=== PATIENT | female | born 2000 | race Caucasian/White ===

== ENCOUNTER 2020-10-06 05:25 | Inpatient (IN) ==
--- NOTE | 2020-10-06 05:56 | Emergency Department Note ---
Impression & Plan Depression with suicidal ideation, Alcohol intoxication ED Provider Note Name: ANABEL MENDOZA Age: 20 Sex: F Arrives Via: Ambulance Informant: Patient, [facility] ED Provider: Андрей Colon MD Chief Complaint: Suicidal Impression: Depression with Suicidal ideation Alcohol intoxication Medical Decision Makin yr old female with history of depression/anxiety, bipolar & ADD arrives with worsening suicidal ideation due to arguments with her mother and admits ETOH use this evening. Medically clear other than mildly intoxicated. She has made no act of furtherance, does not think she would actively harm self. She is a bit tangential/manic on initial evaluation though and would likely benefit from inpatient mental health treatment if she still feels this way when sober. Signed out to Dr Rangel pending psych evaluation. Prior Medical Record and Triage/Nursing Notes reviewed by Me Additional history obtained from chart Differentials:Mood disorder, infection, hypoglycemia, electrolyte abnormalities, cardiac sources, intracerebral event, toxicologic, trauma, neurologic, as well as other pathologies. Vital Signs: reviewed and remarkable for no significant abnormalities Labs:Reviewed and remarkable for etoh elevation Plan: Disposition: Signed out to Dr Rangel Condition: Good History of Present Illness:20 yr old female arrives for evaluation of suicidal ideation. Patient notes extreme stress with mother the last few days. States she started having suicidal thoughts with plan to overdose. Denies any attempt and does not think she would actually harm herself, but she became scarred and went to the [facility] to be evaluated. [facility] sent her here for further evaluation. She admits ETOH earlier tonight. Denies overdose nor attempt to harm self. Denies previous suicide attempt nor any act of furtherance. She admits history of bipolar and anxiety/depression. She had been on Zoloft until a few days ago when she stopped it as she felt it did not work. She uses Propranolol occasionally for panic attacks but she does not feel that it helps. States she is feeling a bit better now that she is at the hospital. Denies drugs use other than occasional marijuana. No chest pain pain, sob, syncope, headache, urinary symptoms, abdominal pain, back pains nor other symptoms. Talking to her mother makes symptoms worse, rest and avoidance makes symptoms be tter. ROS: See above HPI for pertinent positives & negatives. A total of 10 systems reviewed and were otherwise negative. Past Medical History:Bipolar, Anxiety, Depression, ADD Past Surgical History:None Family History:Mother: Bipolar Social History:[employer] Student, from [place], regular ETOH, occasional marijuana, rare tobacco use, no drug use. Home Medications:Adderall 30mg BID, Occasional Propranolol. Allergies:NKDA Vitals:Blood Pressure: 137/74, Pulse 104, RR 22, T 37.3C, O2 98% on RA Physical Exam: GENERAL: Patient is anxious appearing and in minimal distress. mildly intoxicated appearing EYES: No scleral icterus, unremarkable pupils. ENT: Mucous membranes moist, no nasal congestion. NECK: No masses appreciated, nomeningismus, trachea is midline. RESPIRATORY: No dyspnea. Clear to auscultation and equal bilaterally. No wheeze, no rhonchi. CARDIOVASCULAR: Regular rate and rhythm.No murmurs, rubs, gallops appreciated. GASTROINTESTINAL: Abdomen soft, non-tender, no peritonitis.Bowel sounds positive.No masses appreciated. BACK: No midline tenderness, no CVA tenderness EXTREMITIES: Normal motion all extremities, no cyanosis, no edema. NEUROLOGIC: Alert and oriented, no acute motor or sensory deficits, no focal weakness, cranial nerves grossly intact. SKIN: No rash, no jaundice, no diaphoresis. PSYCH: Rapid pressured speech, anxious, states suicidal ideation though does not feel she would kill herself. GCS: 15 ED Course: Times/Reassessments: stable Андрей Colon MD Past Med/Surg History Medical History Anxiety Family history of celiac disease Maternal aunt Family history of scleroderma Mother Family history of systemic lupus erythematosus Maternal great aunt Surgical History No significant past surgical history Social History Smoking Status: Current some day smoker Tobacco Type: Cigarettes Preferred Language: Swazi Feels Safe at Home: Yes Allergies Allergies Allergy/AdvReac Type Severity Reaction Status Date / Time No Known Drug Allergies Allergy Verified 09/06/20 09:41 gluten AdvReac Intolerance Verified 09/06/20 09:41 Home Meds Home Medications Medication Instructions Recorded Confirmed dextroamphetamine-amphetamine 30 30 mg PO BID 12/08/19 10/06/20 mg tablet (Adderall) propranolol 20 mg tablet 20 mg PO DAILY PRN 10/06/20 10/06/20 sertraline 25 mg tablet (Zoloft) 25 mg PO DAILY 10/06/20 10/06/20 Previous Rx's Medication Instructions Recorded albuterol sulfate 90 mcg/actuation 3 inh INHALATION Q6H #18 g 05/21/20 aerosol inhaler epinephrine 0.3 mg/0.3 mL 0.3 mg IM Q4H PRN #1 ea 05/21/20 injection, auto-injector (EpiPen) Results & Data (ED) Vital Signs Vital Signs - 24 hr 10/06/20 05:18 10/06/20 05:54 Temperature 37.3 C Temperature Source Oral Pulse Rate 104 H Pulse Strength Normal Respiratory Rate 22 Respiratory Effort / Characteristics Normal for Patient Respiratory Depth Normal Blood Pressure 137/74 Blood Pressure Mean 95 Blood Pressure Position Lying Pulse Oximetry 98 Oxygen Delivery Method Room Air Room Air Sepsis Recent Fever Within 48 Hours No Sepsis New/Unexplained Change in Mental Status No Sepsis Action Taken by Nursing No Action Required Laboratory Data Result diagrams: 10/06/20 06:06 10/06/20 06:06 Lab Results 10/06/20 10/06/20 10/06/20 Range/Units 05:40 05:40 05:40 WBC (4.8-10.8) K/uL RBC (4.2-5.4) M/uL Hgb (12.0-16.0) g/dL Hct (37-47) % MCV (80-100) fL MCH (25-34) pg MCHC (32-36) g/dL RDW Std Deviation (36.4-46.3) fL RDW Coeff of Smita (11.5-14.5) % Plt Count (130-400) K/uL MPV (7.4-10.4) fL Immature Gran % (Auto) % Neut % (Auto) % Lymph % (Auto) % [place] % (Auto) % Eos % (Auto) % Baso % (Auto) % Neut # (Auto) (1.4-6.5) K/uL Lymph # (Auto) (1.2-3.4) K/uL [place] # (Auto) (0.11-0.59) K/uL Eos # (Auto) (0-0.5) K/uL Baso # (Auto) (0-0.2) K/uL Immature Gran # (Auto) (0.00-0.02) K/uL Sodium (136-145) mmol/L Potassium (3.5-5.1) mmol/L Chloride (98-107) mmol/L Carbon Dioxide (21-32) mmol/L Anion Gap (3-11) BUN (7-18) mg/dl Creatinine (0.6-1.2) mg/dl Est Cr Clr Drug Dosing ml/min Est GFR ( Amer) ml/min Est GFR (Non-Af Amer) ml/min BUN/Creatinine Ratio (10-20) Glucose (70-99) mg/dl Calcium (8.5-10.1) mg/dl Total Bilirubin (0.2-1) mg/dl AST (15-37) U/L ALT (12-78) U/L Alkaline Phosphatase (45-117) U/L Total Protein (6.4-8.2) gm/dl Albumin (3.4-5.0) gm/dl Globulin (2.5-4.0) gm/dl Albumin/Globulin Ratio (0.9-2) TSH (0.300-4.500) uIu/ml Urine Color Yellow Urine Appearance Clear (Clear) Urine pH 8.5 H (4.5-7.5) Ur Specific Mcintosh 1.014 (1.000-1.030) Urine Protein Negative (Negative) Urine Glucose (UA) Negative (Negative) Urine Ketones Negative (Negative) Urine Blood Negative (Negative) Urine Nitrite Negative (Negative) Urine Bilirubin Negative (Negative) Urine Urobilinogen Negative (Negative) Ur Leukocyte Esterase Negative (Negative) Urine Test Negative (Negative) Salicylates (2.8-20) mg/dl Urine Opiates Screen Neg (Neg) Ur Methadone, Qual Neg (Neg) Acetaminophen (10-30) ug/ml Urine Barbiturates Neg (Neg) Ur Phencyclidine (PCP) Neg (Neg) U Amphetamin/Meth Scrn Neg (Neg) MDMA (Ecstasy) Screen Neg (Neg) U Benzodiazepines Scrn Neg (Neg) Ur Cocaine Metabolite Neg (Neg) U Marijuana (THC) Screen Neg (Neg) Ethyl Alcohol mg/dL (0-3) mg/dl 10/06/20 10/06/20 10/06/20 Range/Units 06:06 06:06 06:06 WBC 4.32 L (4.8-10.8) K/uL RBC 3.93 L (4.2-5.4) M/uL Hgb 10.7 L (12.0-16.0) g/dL Hct 33.2 L (37-47) % MCV 84.5 (80-100) fL MCH 27.2 (25-34) pg MCHC 32.2 (32-36) g/dL RDW Std Deviation 46.9 H (36.4-46.3) fL RDW Coeff of Smita 15.2 H (11.5-14.5) % Plt Count 213 (130-400) K/uL MPV 11.1 H (7.4-10.4) fL Immature Gran % (Auto) 0.2 % Neut % (Auto) 46.3 % Lymph % (Auto) 35.0 % [place] % (Auto) 17.8 % Eos % (Auto) 0.5 % Baso % (Auto) 0.2 % Neut # (Auto) 2.00 (1.4-6.5) K/uL Lymph # (Auto) 1.51 (1.2-3.4) K/uL [place] # (Auto) 0.77 H (0.11-0.59) K/uL Eos # (Auto) 0.02 (0-0.5) K/uL Baso # (Auto) 0.01 (0-0.2) K/uL Immature Gran # (Auto) 0.01 (0.00-0.02) K/uL Sodium 140 (136-145) mmol/L Potassium 4.0 (3.5-5.1) mmol/L Chloride 109 H (98-107) mmol/L Carbon Dioxide 27 (21-32) mmol/L Anion Gap 4.0 (3-11) BUN 6 L (7-18) mg/dl Creatinine 0.68 (0.6-1.2) mg/dl Est Cr Clr Drug Dosing 133.5 ml/min Est GFR ( Amer) 144.9 ml/min Est GFR (Non-Af Amer) 125.0 ml/min BUN/Creatinine Ratio 8.8 L (10-20) Glucose 98 (70-99) mg/dl Calcium 8.1 L (8.5-10.1) mg/dl Total Bilirubin 0.2 (0.2-1) mg/dl AST 34 (15-37) U/L ALT 20 (12-78) U/L Alkaline Phosphatase 81 (45-117) U/L Total Protein 7.1 (6.4-8.2) gm/dl Albumin 3.9 (3.4-5.0) gm/dl Globulin 3.2 (2.5-4.0) gm/dl Albumin/Globulin Ratio 1.2 (0.9-2) TSH 2.090 (0.300-4.500) uIu/ml Urine Color Urine Appearance (Clear) Urine pH (4.5-7.5) Ur Specific Mcintosh (1.000-1.030) Urine Protein (Negative) Urine Glucose (UA) (Negative) Urine Ketones (Negative) Urine Blood (Negative) Urine Nitrite (Negative) Urine Bilirubin (Negative) Urine Urobilinogen (Negative) Ur Leukocyte Esterase (Negative) Urine Test (Negative) Salicylates < 1.7 L (2.8-20) mg/dl Urine Opiates Screen (Neg) Ur Methadone, Qual (Neg) Acetaminophen < 2 L (10-30) ug/ml Urine Barbiturates (Neg) Ur Phencyclidine (PCP) (Neg) U Amphetamin/Meth Scrn (Neg) MDMA (Ecstasy) Screen (Neg) U Benzodiazepines Scrn (Neg) Ur Cocaine Metabolite (Neg) U Marijuana (THC) Screen (Neg) Ethyl Alcohol mg/dL (0-3) mg/dl 10/06/20 Range/Units 06:06 WBC (4.8-10.8) K/uL RBC (4.2-5.4) M/uL Hgb (12.0-16.0) g/dL Hct (37-47) % MCV (80-100) fL MCH (25-34) pg MCHC (32-36) g/dL RDW Std Deviation (36.4-46.3) fL RDW Coeff of Smita (11.5-14.5) % Plt Count (130-400) K/uL MPV (7.4-10.4) fL Immature Gran % (Auto) % Neut % (Auto) % Lymph % (Auto) % [place] % (Auto) % Eos % (Auto) % Baso % (Auto) % Neut # (Auto) (1.4-6.5) K/uL Lymph # (Auto) (1.2-3.4) K/uL [place] # (Auto) (0.11-0.59) K/uL Eos # (Auto) (0-0.5) K/uL Baso # (Auto) (0-0.2) K/uL Immature Gran # (Auto) (0.00-0.02) K/uL Sodium (136-145) mmol/L Potassium (3.5-5.1) mmol/L Chloride (98-107) mmol/L Carbon Dioxide (21-32) mmol/L Anion Gap (3-11) BUN (7-18) mg/dl Creatinine (0.6-1.2) mg/dl Est Cr Clr Drug Dosing ml/min Est GFR ( Amer) ml/min Est GFR (Non-Af Amer) ml/min BUN/Creatinine Ratio (10-20) Glucose (70-99) mg/dl Calcium (8.5-10.1) mg/dl Total Bilirubin (0.2-1) mg/dl AST (15-37) U/L ALT (12-78) U/L Alkaline Phosphatase (45-117) U/L Total Protein (6.4-8.2) gm/dl Albumin (3.4-5.0) gm/dl Globulin (2.5-4.0) gm/dl Albumin/Globulin Ratio (0.9-2) TSH (0.300-4.500) uIu/ml Urine Color Urine Appearance (Clear) Urine pH (4.5-7.5) Ur Specific Mc[place]osh (1.000-1.030) Urine Protein (Negative) Urine Glucose (UA) (Negative) Urine Ketones (Negative) Urine Blood (Negative) Urine Nitrite (Negative) Urine Bilirubin (Negative) Urine Urobilinogen (Negative) Ur Leukocyte Esterase (Negative) Urine Test (Negative) Salicylates (2.8-20) mg/dl Urine Opiates Screen (Neg) Ur Methadone, Qual (Neg) Acetaminophen (10-30) ug/ml Urine Barbiturates (Neg) Ur Phencyclidine (PCP) (Neg) U Amphetamin/Meth Scrn (Neg) MDMA (Ecstasy) Screen (Neg) U Benzodiazepines Scrn (Neg) Ur Cocaine Metabolite (Neg) U Marijuana (THC) Screen (Neg) Ethyl Alcohol mg/dL 118.0 H (0-3) mg/dl Discharge Plan Visit Data Chief Complaint: Mental Health Evaluation Stated Complaint: SUICIDAL IDEATION ED Provider: Андрей Colon Discharge Problem: Depression with suicidal ideation, Alcohol intoxication Forms Stand Alone Forms: [facility], Suicide Prevention Resources Prescriptions Prescriptions: No Action dextroamphetamine-amphetamine [Adderall] 30 mg tablet 30 mg PO BID RF: 0 albuterol sulfate 90 mcg/actuation HFA aerosol inhaler 3 inh inhalation Q6H Qty: 18 RF: 2 epinephrine [EpiPen] 0.3 mg/0.3 mL auto-injector 0.3 mg IM Q4H PRN (Reason: anaphylaxis) Qty: 1 RF: 1 propranolol 20 mg Tablet 20 mg PO DAILY PRN (Reason: Anxiety) RF: 0 sertraline [Zoloft] 25 mg Tablet 25 mg PO DAILY RF: 0 Referrals [facility]: [facility] [Primary Care Provider[facility] - Discharge Problem: Alcohol intoxication Qualifiers: Complication of substance-induced condition: uncomplicated Qualified Code(s): F10.920 - Alcohol use, unspecified with intoxication, uncomplicated
[2020-10-06 06:20] LABS: Basophils # (auto) 0.01 K/uL (0-0.2); Basophils % (auto) 0.2 %; Eosinophils # (auto) 0.02 K/uL (0-0.5); Eosinophils % (auto) 0.5 %; Hematocrit (blood only) 33.2 % (37-47); Hemoglobin 10.7 g/dL (12.0-16.0); Immature Granulocytes # (auto) 0.01 K/uL (0.00-0.02); Immature Granulocytes % (auto) 0.2 %; Lymphocytes # (auto) 1.51 K/uL (1.2-3.4); Mean Corpuscular Hemoglobin 27.2 pg (25-34); Mean Corpuscular Hgb Conc 32.2 g/dL (32-36); Mean Corpuscular Volume 84.5 fL (80-100); Mean Platelet Volume 11.1 fL (7.4-10.4); Monocytes # (auto) 0.77 K/uL (0.11-0.59); Monocytes % (auto) 17.8 %; Neutrophils % (auto) 46.3 %; Platelet Count 213 K/uL (130-400); RDW Coefficient of Variation 15.2 % (11.5-14.5); RDW Standard Deviation 46.9 fL (36.4-46.3); Red Blood Count 3.93 M/uL (4.2-5.4); White Blood Count 4.32 K/uL (4.8-10.8)
[2020-10-06 06:29] LABS: Pregnancy Test, Urine Negative (Negative)
[2020-10-06 06:31] LABS: Appearance Urine Clear (Clear); Bilirubin Urine Negative (Negative); Blood Urine Negative (Negative); Color Urine Yellow; Glucose Urine UA Negative (Negative); Ketones Urine Negative (Negative); Leukocyte Esterase Urine Negative (Negative); Nitrite Urine Negative (Negative); Protein Urine Negative (Negative); Specific Gravity Urine 1.014 (1.000-1.030); Urobilinogen Urine Negative (Negative); pH Urine 8.5 (4.5-7.5)
[2020-10-06 06:36] LABS: Albumin Level 3.9 gm/dl (3.4-5.0); BUN Creatinine Ratio 8.8 (10-20); Calcium 8.1 mg/dl (8.5-10.1); Creatinine Clr Calc Pharmacy 133.5 ml/min; Est GFR (African American) 144.9 ml/min
[2020-10-06 06:39] LABS: Acetaminophen < 2 ug/ml (10-30)
[2020-10-06 06:40] LABS: Salicylate < 1.7 mg/dl (2.8-20)
[2020-10-06 06:47] LABS: Albumin Globulin Ratio 1.2 (0.9-2); Bilirubin,Total 0.2 mg/dl (0.2-1); Globulin 3.2 gm/dl (2.5-4.0); Thyroid Stimulating Hormone 2.09 uIu/ml (0.300-4.500); Total Protein 7.1 gm/dl (6.4-8.2)
[2020-10-06 06:47] LABS: Amphetamines+Metham, Urine Neg (Neg); Barbiturates, Urine Neg (Neg); Benzodiazepine, Urine Neg (Neg); Cocaine, Urine Neg (Neg); MDMA (Ecstacy), Urine Neg (Neg); Methadone, Urine Neg (Neg); Opiate, Urine Neg (Neg); Phencyclidine, Urine Neg (Neg)
[2020-10-06] MEDS ORDERED: MAGNESIUM HYDROXIDE SUSP 30 ML UDC PO PRN (11:15)
[2020-10-06] MEDS ORDERED: hydrOXYzine HCl 25 MG TAB PO PRN ×2 (11:15)
[2020-10-06] MEDS ORDERED: BISMUTH SUBSALICYLATE LIQD 236 ML PO PRN (11:15)
[2020-10-06] MEDS ORDERED: ACETAMINOPHEN 325 MG TAB PO PRN (11:15)
[2020-10-06] MEDS ORDERED: ALUMINUM/MAGNESIUM SUSP 30 ML UDC PO PRN (11:15)
[2020-10-06] MEDS ORDERED: LORazepam 1 MG TAB PO PRN (11:15)
[2020-10-06] MEDS ORDERED: SODIUM CHLORIDE 0.65% NA SOLN 45 ML (OCEAN) PRN (11:15)
--- NOTE | 2020-10-06 14:46 | Emergency Department Note ---
ED Visit Note I received this pt in signout at the change of shift from Dr. Colon awaiting MH evaluation. Pt was accepted by [facility] for voluntary inpatient admission. Please refer to previous documentation for further details of the history, physical and visit. . : Alcohol intoxication Qualifiers: Complication of substance-induced condition: uncomplicated Qualified Code(s): F10.920 - Alcohol use, unspecified with intoxication, uncomplicated
[2020-10-06] MEDS: LORazepam 1 MG TAB PO PRN ×2 (15:40→22:35)
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
--- NOTE | 2020-10-07 09:29 | Psychiatric Progress Note ---
Date of Service October 07, 2020 Impression / Recommendations Impression 20-year-old female presenting with suicidal ideation and depression. Upon interview seems that patient is expressing more difficulty with mood swings, irritability, impulsivity. Diagnosis will remain MDD although on the differential is substance-induced mood disorder, bipolar 2 disorder. Patient will benefit from inpatient hospitalization for purposes of safety, stabilization, medication management. Reviewed Dr. Casas's admission H&P, admission assessment in italics. 10/07/20-- (1) Depression with suicidal ideation: 10/07/20--Reviewed Dr. Casas's plan in italics below. Risks/benefits/alternatives reviewed re: antidepressants for the treatment of depression and/or anxiety. Discussion included but was not limited to FDA black box warnings re: suicidality for patients 24 yo and younger. The patient agreed to a trial of Effexor XR starting 37.5 mg today. Reviewed that if remains on limited supply of lorazepam at discharge should not be combined with ETOh or other sedating substances or be used longer term for sleep. The patient was admitted to the [facility] ([facility]) on every 15 minute checks (behavioral with suicide precautions for safety. The patient will participate in group, recreational, and milieu therapies and will be offered additional individual and family sessions as clinically appropriate. 10/06/2020atient will be started on lorazepam 1mg as needed every 6 hours for anxiety/ panic attacks. Her Adderall will be held. We will continue to monitor mood. (2) Alcohol abuse: 10/07/20--Reviewed Dr. Casas's plan in italics below. No evidence of withdrawal. College Binge drinker. Referral to [place] pending. The patient's use history suggests problematic substance use. Brief intervention was offered and accepted. Intervention was greater than 5 min in length and included assessing readiness to quit, advice on how to reduce or abstain, and to set a specific goal for this hospitalization. form worker will also assist in anticipating barriers to sobriety and in problem-solving for solutions to those problems while arranging for referral to appropriate treatment. The patient is in precontemplation stage with regards to transtheoretical model of change. The patient is advised to decrease consumption due to depressant effects and risk of interaction with prescription medications. The patient agreed to consider alcohol treatment and will be provided with recovery materials to continue to educate self on how to cope with their condition without abusing substances. (3) Anemia: 10/07/20--iron panel, will need f/u with [facility] [[email or web address] Patient states has taken iron supplements intermittently before and may be nutritional. Inventory Assets Strengths: Intelligence, social support Needs: Stability, sobriety Risk Factors Assessment Male: No Health Problems: No Previous Attempt: No Hopelessness: No Protective Factors Assessment Employed: No Good Rapport with Provider: Yes Interval History Identifying Information 20 yo female with a prior dx of bipolar disorder at [place] though maintained on Zoloft and Adderall 30 mg BID up to admission, presented with SI with plan. Adderall was held on admission (201). Chief Complaint "I'm an anxious person at baseline and then I just meltdown". Review of Systems Sleep Information Total Hours of Sleep: 6 Meal Information Percent Meal Consumed - Lunch: 100 Percent Meal Consumed - Dinner: 100 Subjective Subjective Patient was seen & assessed and interval progress reviewed with nursing and social work. no acute issues overnight. is focussed on moving out of apartment and return to school. Referral pending to [place] for therapy. Was triggered by a recent trip to [place] to visit mother. Limited supports other than ex- boyfriend who will be leaving town. Patient denies periods of elevated mood or episodic impulsivity. Clarifies that her initial bipolar dx was a previous course of treatment and has since been dx with ADHD and responded to Adderall. Despite rx for 30 mg BID generally takes 15 mg in the am, 15 mg a few hours later and sometimes 7.5 mg booster in the afternoon. She has never had formal psych testing and is interested in accommodations with disability resources as "i've never finished an exam in my entire life". Reports that wear off/rebound has been somewhat of a concern and she was hoping to switch to Adderall XR trial. Reviewed that non-formulary. States that her panic attacks occur out of no where and happen several times a week. No response to Prozac, Zoloft, or Vistaril. Zoloft 25 mg was only taken for "maybe 3 weeks". Reports that once a month (no relation to work or menses) she has a "meltdown" for a few hours where extremely distraught and similar to episode that brought to ED. She denies feeling suicidal since admission but admittedly has limited supports. Physical Exam Psychiatric Orientation: alert and oriented x 3 Apperance: appropriately groomed Eye Contact: good eye contact Motor Behavior: no abnormal motor movements Affect: + flat affect Mood: + anxious mood Thought Process: linear/logical thought process Thought Content: reality based without delusions Suicidal Thoughts: denies suicidal intent Homicidal Thoughts: denies homicidal thoughts and denies homicidal intent Hallucinations: no auditory hallucinations and no visual hallucinations Cognition: recent memory grossly intact Estimated Intelligence: average estimated intelligence Insight: + fair insight Judgement: + fair judgement Vital Signs (Past 24 Hours) Last Vital Signs Temp 36.8 C 10/07/20 06:31 Pulse 76 10/07/20 06:32 Resp 16 10/07/20 06:31 BP 109/71 10/07/20 06:32 Pulse Ox 100 10/06/20 18:42 Results & Data ([facility]) Current Inpatient Medications Current Inpatient Medications: Current Inpatient Medications Acetaminophen (Acetaminophen 325 Mg Tab) 650 mg PO Q4H PRN PRN Reason: Headache or Minor Fever Stop: 11/05/20 11:14 Al Hydrox/Mg Hydrox/Simethicone (Aluminum/Magnesium Susp 30 Ml Udc) 30 ml PO Q4H PRN PRN Reason: GI Upset Stop: 11/05/20 11:14 Bismuth Subsalicylate (Bismuth Subsalicylate Liqd 236 Ml) 15 ml PO PRN PRN PRN Reason: Loose Stool Stop: 11/05/20 11:14 Lorazepam (Lorazepam 1 Mg Tab) 1 mg PO ONE PRN; Protocol PRN Reason: EtoH Withdrawal AWSS 6-10 Lorazepam (Lorazepam 1 Mg Tab) 1 mg PO Q6 PRN PRN Reason: Anxiety Stop: 11/05/20 15:16 Last Admin: 10/06/20 22:35 Dose: 1 mg Documented by: Magnesium Hydroxide (Magnesium Hydroxide Susp 30 Ml Udc) 30 ml PO DAILY PRN PRN Reason: Constipation Stop: 11/05/20 11:14 Sodium Chloride (Sodium Chloride 0.65% Na Soln 45 Ml ([place])) 1 - 2 sprays NA PRN PRN PRN Reason: Nasal Dryness/Congestion Stop: 11/05/20 11:14 Mental Health & Subst Abuse Tx Psychiatrist Name of Psychiatrist: Wilfredo [place] Psychiatrist's Psychiatric Appointment Comment: [id number] [facility] [id number] Therapist Name of Therapist: none Sports Complex Attendant Name of Sports Complex Attendant: none Post Discharge Appointments Primary Care Physician Name Of Family Doctor: [facility]
[2020-10-07] MEDS ORDERED: VENLAFAXINE HCL XR 37.5 MG CAPXR PO SCH (10:30)
[2020-10-07] MEDS ORDERED: EPINEPHrine INJ 1 MG/ML AMP IM PRN (10:30)
[2020-10-07 13:25] LABS: Iron 28 mcg/dl (35-150); Total Iron Binding Capacity 476 mcg/dl (250-450)
[2020-10-07] MEDS: ALBUTEROL HFA 8 GM INHALER INH SCH ×2 (13:57→19:45)
[2020-10-07 14:04] LABS: Folate (Folic Acid) 9.8 ng/ml (>5.38)
[2020-10-07] MEDS: COUGH DROP (SUGAR FREE) LOZ 24 LOZ/1 BOX BUCCAL PRN (14:05)
[2020-10-07] MEDS: LORazepam 1 MG TAB PO PRN (20:03)
[2020-10-08] MEDS: ALBUTEROL HFA 8 GM INHALER INH SCH ×2 (01:37→08:25)
[2020-10-08] MEDS ORDERED: ALBUTEROL HFA 8 GM INHALER INH PRN (10:49)
[2020-10-08] MEDS: VENLAFAXINE HCL XR 75 MG CAPXR PO SCH (12:27)
--- NOTE | 2020-10-08 13:51 | Psychiatric Progress Note ---
Date of Service October 08, 2020 Impression / Recommendations Impression 20-year-old female presenting with suicidal ideation and depression. Upon interview seems that patient is expressing more difficulty with mood swings, irritability, impulsivity. Diagnosis will remain MDD although on the differential is substance-induced mood disorder, bipolar 2 disorder. Patient will benefit from inpatient hospitalization for purposes of safety, stabilization, medication management. Reviewed Dr. Casas's admission H&P, admission assessment in italics. 10/07/20 10/08/20--improved, remains anxious. (1) Depression with suicidal ideation: 10/08/20--titrate Effexor XR to 75 mg po qam. 10/07/20--Reviewed Dr. Casas's plan in italics below. Risks/benefits/alternatives reviewed re: antidepressants for the treatment of depression and/or anxiety. Discussion included but was not limited to FDA black box warnings re: suicidality for patients 24 yo and younger. The patient agreed to a trial of Effexor XR starting 37.5 mg today. Reviewed that if remains on limited supply of lorazepam at discharge should not be combined with ETOh or other sedating substances or be used longer term for sleep. The patient was admitted to the [facility] ([facility]) on every 15 minute checks (behavioral with suicide precautions for safety. The patient will participate in group, recreational, and milieu therapies and will be offered additional individual and family sessions as clinically appropriate. 10/06/2020atient will be started on lorazepam 1mg as needed every 6 hours for anxiety/ panic attacks. Her Adderall will be held. We will continue to monitor mood. (2) Alcohol abuse: 10/07/20--Reviewed Dr. Casas's plan in italics below. No evidence of withdrawal. College Binge drinker. Referral to [facility] pending. The patient's use history suggests problematic substance use. Brief intervention was offered and accepted. Intervention was greater than 5 min in length and included assessing readiness to quit, advice on how to reduce or abstain, and to set a specific goal for this hospitalization. nursing support worker will also assist in anticipating barriers to sobriety and in problem-solving for solutions to those problems while arranging for referral to appropriate treatment. The patient is in precontemplation stage with regards to transtheoretical model of change. The patient is advised to decrease consumption due to depressant effects and risk of interaction with prescription medications. The patient agreed to consider alcohol treatment and will be provided with recovery materials to continue to educate self on how to cope with their condition without abusing substances. (3) Anemia: 10/08/30--iron level low, TIBC a bit high consistent with iron deficiency anemia, resume supplementation. 10/07/20--iron panel, will need f/u with S. Patient states has taken iron supplements intermittently before and may be nutritional. (4) Attention deficit disorder without mention of hyperactivity: confirmed no personal or family history of structural cardiac abnl/arrhythmia. Patient likely to resume as outpatient, ideally would have formal testing. Restarting 10 mg BID here to assess mood and tolerability in combination with Effexor and determine ability to switch to Adderall XR trial as outpatient. Inventory Assets Strengths: Intelligence, social support Needs: Stability, sobriety Risk Factors Assessment Male: No Health Problems: No Previous Attempt: No Hopelessness: No Protective Factors Assessment Employed: No Good Rapport with Provider: Yes Interval History Identifying Information 20 yo female with a prior dx of bipolar disorder at [place] though maintained on Zoloft and Adderall 30 mg BID up to admission, presented with SI with plan. Adderall was held on admission (201). Chief Complaint "still pretty tired, don't feel much different". Review of Systems Sleep Information Total Hours of Sleep: 6 Meal Information Percent Meal Consumed - Breakfast: 0 Percent Meal Consumed - Lunch: 100 Percent Meal Consumed - Dinner: 100 Subjective Subjective Patient was seen & assessed and interval progress reviewed with nursing. Did receive prn Ativan for jitteriness yesterday, does not attribute to medications. Otherwise was able to socialize, complete simple tasks. Would like to restart Adderall to ensure no dip in mood. Did speak with some friends yesterday. Still needs session with a support person as part of safety planning. Physical Exam Psychiatric Orientation: alert and oriented x 3 Apperance: appropriately groomed Eye Contact: good eye contact Motor Behavior: no abnormal motor movements Affect: + flat affect Mood: + anxious mood Thought Process: linear/logical thought process Thought Content: reality based without delusions Suicidal Thoughts: denies suicidal plan and denies suicidal intent Homicidal Thoughts: denies homicidal thoughts, denies homicidal plan and denies homicidal intent Hallucinations: no auditory hallucinations and no visual hallucinations Cognition: recent memory grossly intact Estimated Intelligence: average estimated intelligence Insight: + fair insight Judgement: + fair judgement Vital Signs (Past 24 Hours) Last Vital Signs Temp 36.7 C 10/08/20 06:58 Pulse 76 10/08/20 08:26 Resp 14 10/08/20 08:26 BP 113/76 10/08/20 06:59 Pulse Ox 99 10/08/20 08:26 Results & Data ([facility]) Laboratory Results Laboratory Results - last 24 hr 10/07/20 12:53 Vitamin B12 343 Folate 9.80 Current Inpatient Medications Current Inpatient Medications: Current Inpatient Medications Acetaminophen (Acetaminophen 325 Mg Tab) 650 mg PO Q4H PRN PRN Reason: Headache or Minor Fever Stop: 11/05/20 11:14 Al Hydrox/Mg Hydrox/Simethicone (Aluminum/Magnesium Susp 30 Ml Udc) 30 ml PO Q4H PRN PRN Reason: GI Upset Stop: 11/05/20 11:14 Albuterol (Albuterol Hfa 8 Gm Inhaler) 3 puffs INH Q6R PRN PRN Reason: Wheezing Stop: 11/06/20 12:59 Amphetamine/Dextroamphetamine (Amphetamine Asp/Sulf/Dextramph 20 Mg Tab) 10 mg PO BID@0900,1400 NNEKA Stop: 10/22/20 13:59 Bismuth Subsalicylate (Bismuth Subsalicylate Liqd 236 Ml) 15 ml PO PRN PRN PRN Reason: Loose Stool Stop: 11/05/20 11:14 Epinephrine HCl (Epinephrine Inj 1 Mg/Ml Amp) 0.3 mg IM Q4H PRN PRN Reason: anaphylaxis Stop: 11/06/20 10:29 Lorazepam (Lorazepam 1 Mg Tab) 1 mg PO Q6 PRN PRN Reason: Anxiety Stop: 11/05/20 15:16 Last Admin: 10/07/20 20:03 Dose: 1 mg Documented by: Magnesium Hydroxide (Magnesium Hydroxide Susp 30 Ml Udc) 30 ml PO DAILY PRN PRN Reason: Constipation Stop: 11/05/20 11:14 Menthol (Cough Drop (Sugar Free) Rory 24 Rory/1 Box) 1 rory BUCCAL Q2HWA PRN PRN Reason: Sore Throat Stop: 11/06/20 12:19 Last Admin: 10/07/20 14:05 Dose: 1 rory Documented by: Sodium Chloride (Sodium Chloride 0.65% Na Soln 45 Ml ([place])) 1 - 2 sprays NA PRN PRN PRN Reason: Nasal Dryness/Congestion Stop: 11/05/20 11:14 Venlafaxine HCl (Venlafaxine Hcl Xr 75 Mg Capxr) 75 mg PO QAM NNEKA Stop: 11/07/20 10:44 Last Admin: 10/08/20 12:27 Dose: 75 mg Documented by: Mental Health & Subst Abuse Tx Psychiatrist Name of Psychiatrist: Wil[facility] [place] Psychiatrist's Psychiatric Appointment Comment: [id number] [facility], [facility] [id number] Therapist Name of Therapist: none Chief Engineer Name of Chief Engineer: none Post Discharge Appointments Primary Care Physician Name Of Family Doctor: [facility]
[2020-10-08] MEDS: AMPHETAMINE ASP/SULF/DEXTRAMPH 20 MG TAB PO SCH (14:36)
[2020-10-08] MEDS ORDERED: FERROUS SULFATE 325 MG TAB PO SCH (17:15)
[2020-10-08] MEDS: LORazepam 1 MG TAB PO PRN (22:31)
[2020-10-09] MEDS: AMPHETAMINE ASP/SULF/DEXTRAMPH 20 MG TAB PO SCH (08:58)
[2020-10-09] MEDS: VENLAFAXINE HCL XR 75 MG CAPXR PO SCH (08:59)
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
[2020-10-09] MEDS ORDERED: DESTROY THIS MEDICATION ONE (10:54)
[2020-10-09] MEDS: COUGH DROP (SUGAR FREE) LOZ 24 LOZ/1 BOX BUCCAL PRN (12:29)
== END 2020-10-09 13:00 | disposition home or self-care (01) | DRG 881 ==
LOC: ED 05:25 → SUATTDRO 11:16 → 3S 11:16